=== PATIENT | male | born 1990 | race Caucasian/White ===

== ENCOUNTER 2020-09-30 18:13 | Emergency (ER) | payer OTHER ==
[~2020-09-30] VITALS: Ht 172.7 cm; Wt 68.0 kg
[~2020-09-30 18:13] MED LIST: PENICILLIN V P500 MG PO
== END 2020-09-30 22:12 | disposition short-term general hospital (02) ==
LOC: ED 18:13
DX: T07.XXXA Unspecified multiple injuries, initial encounter (principal); M54.6 Pain in thoracic spine; M54.5 Low back pain; R51.9 Headache, unspecified; M54.2 Cervicalgia; G83.10 Monoplegia of lower limb affecting unspecified side; Z20.822 Contact with and (suspected) exposure to COVID-19; W10.9XXA Fall (on) (from) unspecified stairs and steps, initial encounter; F17.200 Nicotine dependence, unspecified, uncomplicated
CPT/HCPCS: 70450; 71045; 71260; 72125; 72128; 72131; 74177; 80053; 81001; 85025; 99285-25; C9803; J3010; J7030; Q9967; U0003